=== PATIENT | female | born 1990 | race African-American/Black ===

== ENCOUNTER 2017-06-12 14:53 | Emergency (ER) | payer OTHER ==
[~2017-06-12] VITALS: Ht 162.6 cm; Wt 56.7 kg
[2017-06-12 18:02] VITALS: BP 121/78
== END 2017-06-12 18:03 | disposition home or self-care (01) ==
LOC: ER 14:53
DX: S16.1XXA Strain of muscle, fascia and tendon at neck level, initial encounter (principal); V43.62XA Car passenger injured in collision with other type car in traffic accident, initial encounter; Y93.89 Activity, other specified; Y92.488 Other paved roadways as the place of occurrence of the external cause; Y99.8 Other external cause status